=== PATIENT | male | born 1980 | race American Indian/Alaskan Native ===

== ENCOUNTER 2020-03-09 00:26 | Emergency (ER) | payer MEDICAID, OTHER ==
[2020-03-09 01:51] VITALS: BP 127/89
[2020-03-09] MEDS ORDERED: IBUPROFEN 800 MG TAB PO ONE (03:16)
[2020-03-09] MEDS ORDERED: SODIUM CHLORIDE 0.9% 1000 ML 1,000 ML IV ONE (03:18)
--- NOTE | 2020-03-09 03:58 | Emergency Department Report ---
ED Lower Extremity HPI - General Chief Complaint: Extremity Injury, Lower Stated Complaint: BILATERAL LEG PAIN Time Seen by Provider: 03/09/20 03:16 Source: patient Mode of arrival: Ambulatory Limitations: No Limitations - History of Present Illness Initial Comments: pt complains of bilat thigh pain after working out and heavy lifting 1 week ago, described 3/10 pain and soreness. pain exacerbated palpation and performing work duties. symptoms relieved by rest. pt denies fall injury or trauma. MD Complaint: leg injury Onset/Timin -: week(s) Injury: Thigh: Right, Left Type of Injury: hyperextension, other (overuse ) Place: home Severity: mild Severity scale (0 -10): 3 Improves With: rest Worsens With: movement, palpation Context: other (lifting ) Associated Symptoms: ambulatory. denies: snap/pop sensation, swelling, numbness, tingling - Related Data Home Medications Medication Instructions Recorded Confirmed Last Taken Atorvastatin Calcium [Lipitor] 20 mg PO QHS 06/01/14 06/01/14 05/31/14 Previous Rx's Medication Instructions Recorded Last Taken Type Metoprolol [Lopressor TAB] 25 mg PO BID #60 tablet 06/01/14 Unknown Rx Menthol/Camphor [[place] 1 applicatio TP QID PRN #1 tube 03/09/20 Unknown Rx Ointment] Naproxen 500 mg PO BID PRN #30 tablet 03/09/20 Unknown Rx Allergies Allergy/AdvReac Type Severity Reaction Status Date / Time Penicillins Allergy Unknown Verified 01/18/14 00:31 shellfish derived Allergy Shortness Verified 01/18/14 00:31 of Breath ED Review of Systems ROS: Stated complaint: BILATERAL LEG PAIN Other details as noted in HPI Constitutional: denies: chills, fever Eyes: denies: eye pain, eye discharge, vision change ENT: denies: ear pain, throat pain Respiratory: denies: cough, shortness of breath, wheezing Cardiovascular: denies: chest pain, palpitations Endocrine: no symptoms reported Gastrointestinal: denies: abdominal pain, nausea, diarrhea Genitourinary: denies: urgency, dysuria Musculoskeletal: denies: back pain, joint swelling, arthralgia Skin: denies: rash, lesions Neurological: denies: headache, weakness, paresthesias Psychiatric: as per HPI Hematological/Lymphatic: denies: easy bleeding, easy bruising ED Past Medical Hx - Past Medical History Previous Medical History?: Yes Hx Hypertension: Yes (not reg on meds) Additional medical history: etoh abuse - Surgical History Past Surgical History?: Yes Additional Surgical History: dental extraction today 06-01-14 - Social History Smoking Status: Current Every Day Smoker Substance Use Type: Alcohol - Medications Home Medications: Home Medications Medication Instructions Recorded Confirmed Last Taken Type Atorvastatin Calcium [Lipitor] 20 mg PO QHS 06/01/14 06/01/14 05/31/14 History Metoprolol [Lopressor TAB] 25 mg PO BID #60 tablet 06/01/14 Unknown Rx Menthol/Camphor [[place] 1 applicatio TP QID PRN #1 tube 03/09/20 Unknown Rx Ointment] Naproxen 500 mg PO BID PRN #30 tablet 03/09/20 Unknown Rx ED Physical Exam - General Limitations: No Limitations General appearance: alert, in no apparent distress - Head Head exam: Present: atraumatic, normocephalic - Eye Eye exam: Present: normal appearance, PERRL, EOMI Pupils: Present: normal accommodation - ENT ENT exam: Present: mucous membranes moist - Neck Neck exam: Present: normal inspection, full ROM. Absent: tenderness - Respiratory Respiratory exam: Present: normal lung sounds bilaterally. Absent: respiratory distress, wheezes, stridor, chest wall tenderness - Cardiovascular Cardiovascular Exam: Present: regular rate, normal rhythm, normal heart sounds. Absent: systolic murmur, diastolic murmur, rubs, gallop - GI/Abdominal GI/Abdominal exam: Present: soft, normal bowel sounds - Rectal Rectal exam: Present: deferred - Extremities Exam Extremities exam: Present: normal inspection, full ROM, tenderness (mild reproducible muscular tenderness to deep palpation). Absent: pedal edema, joint swelling, calf tenderness - Back Exam Back exam: Present: normal inspection, full ROM. Absent: tenderness - Neurological Exam Neurological exam: Present: alert, oriented X3, CN II-XII intact, normal gait, reflexes normal. Absent: motor sensory deficit - Expanded Neurological Exam Expanded Patient oriented to: Present: person, place, time Speech: Present: fluid speech Motor strength exam: RUE: 5, LUE: 5, RLE: 5, LLE: 5 Best Eye Response ([place]): (4) open spontaneously Best Motor Response ([place]): (6) obeys commands Best Verbal Response ([place]): (5) oriented [place] Total: 15 - Psychiatric Psychiatric exam: Present: normal affect, normal mood - Skin Skin exam: Present: warm, dry, intact, normal color. Absent: rash ED Course Vital Signs 03/09/20 03/09/20 00:31 01:50 Temperature 98.4 F 98.5 F Pulse Rate 122 H 108 H Respiratory 16 18 Rate Blood Pressure 146/93 Blood Pressure 127/89 [Right] O2 Sat by Pulse 97 98 Oximetry ED Lower Extremity MDM - Medical Decision Making pt declines labs or imaging , he is currently a/o x 3, ambulatory with steady gait , denies pain at this time, plan: nsaids, analgesic balm., moist heat therapy follow up with pcp in 2-3 days. pt verbalized agreement and agreement with discharge plan. Critical care attestation.: If time is entered above; I have spent that time in minutes in the direct care of this critically ill patient, excluding procedure time. ED Disposition Clinical Impression: Musculoskeletal pain of lower extremity Qualifiers: Laterality: unspecified laterality Qualified Code(s): M79.606 - Pain in leg, unspecified Disposition: DC-01 TO HOME OR SELFCARE Is pt being admited?: No Does the pt Need Aspirin: No Condition: Stable Instructions: Musculoskeletal Pain (ED) Prescriptions: Naproxen 500 mg PO BID PRN #30 tablet PRN Reason: pain Menthol/Camphor [[place] Ointment] 1 applicatio TP QID PRN #1 tube PRN Reason: pain Referrals: IFEOMA MCKEON MD [Staff Physician] - 3-5 Days Forms: Work/School Release Form(ED) Time of Disposition: 04:04
== END 2020-03-09 04:02 | disposition left against medical advice (07) ==
LOC: ED 00:26
DX: M79.604 Pain in right leg (principal); M79.605 Pain in left leg; I10 Essential (primary) hypertension; F17.200 Nicotine dependence, unspecified, uncomplicated; Z79.899 Other long term (current) drug therapy; Z88.0 Allergy status to penicillin; Z91.013 Allergy to seafood
CPT/HCPCS: 99282; J7030